=== PATIENT | male | born 2000 | race Caucasian/White ===

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

== ENCOUNTER 2021-12-18 19:00 | Emergency (ER) | payer SELFPAY ==
[~2021-12-18] VITALS: Ht 167.6 cm; Wt 61.2 kg
[~2021-12-18 19:00] MED LIST changes: +KEPPRA XR750 MG PO; +Keppra750 MG PO
== END 2021-12-18 19:39 | disposition home or self-care (01) ==
LOC: ER 19:00
DX: G40.909 Epilepsy, unspecified, not intractable, without status epilepticus (principal); Z79.899 Other long term (current) drug therapy
CPT/HCPCS: 99283